=== PATIENT | male | born 1980 | race Caucasian/White ===

== ENCOUNTER 2016-12-15 08:35 | Emergency (ER) | payer OTHER ==
[2016-12-15 08:50] VITALS: BP 155/85
--- NOTE | 2016-12-15 09:34 | UC ---
UC General HPI - HPI Summary HPI Summary: 36yo c/o sore throat, cough, congestion last couple days. + sick contact household + strep. No sob / rash. No cp. No GI issiues. - History of Current Complaint Chief Complaint: UCRespiratory Stated Complaint: THROAT,COUGH,FEVER Time Seen by Provider: 12/15/16 08:55 Hx Obtained From: Patient - Allergy/Home Medications Allergies/Adverse Reactions: Allergies Allergy/AdvReac Type Severity Reaction Status Date / Time No Known Allergies Allergy Verified 12/15/16 08:40 Home Medications: Home Medications Metoprolol Succinate [Toprol Xl] 50 mg PO BID 12/15/16 [History Confirmed ] PMH/Surg Hx/FS Hx/Imm Hx Previously Healthy: Yes - Surgical History Surgical History: Yes Surgery Procedure, Year, and Place: t/a 1987. L shoulder arhroscopy. biateral knee surgery acl 2014 - Family History Known Family History: Positive: Cardiac Disease - father - Social History Alcohol Use: Occasionally Alcohol Amount: COUPLE BEERS 3XWEEK Substance Use Type: Excessive Caffeine, Marijuana Substance Use Comment - Amount & Last Used: MEDICALLY PRESCRIBED Smoking Status (MU): Never Smoked Tobacco - Immunization History Most Recent Influenza Vaccination: NONE 2017 Review of Systems Constitutional: Fever Skin: Negative Eyes: Negative ENT: Sore Throat, Sinus Congestion Respiratory: Cough Cardiovascular: Negative Gastrointestinal: Negative Genitourinary: Negative Motor: Negative Neurovascular: Negative Musculoskeletal: Negative Neurological: Negative Psychological: Negative Is Patient Immunocompromised?: No All Other Systems Reviewed And Are Negative: Yes Physical Exam Triage Information Reviewed: Yes Appearance: Well-Nourished Vital Signs: Initial Vital Signs Temp 99.7 F 12/15/16 08:41 Pulse 115 12/15/16 08:41 Resp 18 12/15/16 08:41 BP 155/85 12/15/16 08:41 Pulse Ox 99 12/15/16 08:41 Vital Signs Reviewed: Yes Eye Exam: Normal ENT: Positive: Pharyngeal erythema, TM dull Dental Exam: Normal Neck exam: Normal Respiratory Exam: Normal - + rhonchorus cough Respiratory: Positive: Chest non-tender, Lungs clear, Normal breath sounds, No respiratory distress, No accessory muscle use Cardiovascular Exam: Normal Cardiovascular: Positive: RRR, No Murmur, Pulses Normal, Brisk Capillary Refill Abdominal Exam: Normal Musculoskeletal Exam: Normal Neurological Exam: Normal Psychological Exam: Normal Skin Exam: Normal - no visible or reported rash Course/Dx - Course Course Of Treatment: + rst. no new issues in CCC. Questions answered as posed to the best of my ability. Reviewed strep household precuations. - Differential Dx - Multi-Symptom Provider Diagnoses: strep throat Discharge - Discharge Plan Condition: Stable Disposition: HOME Patient Education Materials: Strep Throat (ED)
== END 2016-12-15 09:38 | disposition home or self-care (01) ==
LOC: UCCORT 08:35
DX: J02.0 Streptococcal pharyngitis (principal); F12.10 Cannabis abuse, uncomplicated
CPT/HCPCS: 87651; 99212; G0463

== ENCOUNTER 2018-08-11 08:58 | Emergency (ER) | payer OTHER ==
[2018-08-11] MEDS ORDERED: Albuterol HFA INHALER* 8 gm MDI INH ONE (09:32)
--- NOTE | 2018-08-11 09:33 | UC ---
Respiratory Complaint HPI - HPI Summary HPI Summary: 38 yo male with nasal congestion and post nasal drip x > 2 weeks facial pressure ears popping feverish cough (occasionally productive of suptum) chest tightness has used inhalers in past no n/v/s no CP or SOB - History of Current Complaint Chief Complaint: UCRespiratory Stated Complaint: SINUS PRESSURE Time Seen by Provider: 08/11/18 09:18 Hx Obtained From: Patient Onset/Duration: Sudden Onset, Lasting Weeks Timing: Constant Severity Initially: Mild Severity Currently: Moderate Pain Intensity: 3 Pain Scale Used: 0-10 Numeric Character: Cough: Nonproductive - rarely brings up phelgm Aggravating Factors: Allergens Alleviating Factors: Nothing Associated Signs And Symptoms: Positive: Wheezing, Nasal Congestion, Sinus Discomfort Related History: Seasonal Allergies, Similar Episode/Dx as: - sinsuitis - Allergies/Home Medications Allergies/Adverse Reactions: Allergies Allergy/AdvReac Type Severity Reaction Status Date / Time No Known Allergies Allergy Verified 08/11/18 09:07 Home Medications: Home Medications Fluticasone NASAL SPRAY 50MCG* [Flonase NASAL SPRAY 50MCG*] 2 spray BOTH NARES DAILY PRN 08/11/18 [History Confirmed 08/11/18] Lisinopril TAB* [Prinivil TAB*] 20 mg PO DAILY 08/11/18 [History Confirmed 08/11] PMH/Surg Hx/FS Hx/Imm Hx Previously Healthy: Yes Cardiovascular History: Hypertension - Surgical History Surgical History: Yes Surgery Procedure, Year, and Place: t/a 1987. L shoulder arhroscopy. biateral knee surgery acl 2014 - Family History Known Family History: Positive: Cardiac Disease - father, Hypertension - Social History Alcohol Use: Weekly Alcohol Amount: COUPLE BEERS 3XWEEK Substance Use Type: Excessive Caffeine, Marijuana Substance Use Comment - Amount & Last Used: MEDICALLY PRESCRIBED Smoking Status (MU): Never Smoked Tobacco - Immunization History Most Recent Influenza Vaccination: NONE 2016 Review of Systems All Other Systems Reviewed And Are Negative: Yes Constitutional: Positive: Fever, Fatigue Skin: Positive: Negative Eyes: Positive: Negative ENT: Positive: Ear Ache, Nasal Discharge, Sinus Congestion, Sinus Pain/ Tenderness Respiratory: Positive: Cough Cardiovascular: Positive: Negative Gastrointestinal: Positive: Negative Genitourinary: Positive: Negative Motor: Positive: Negative Neurovascular: Positive: Negative Musculoskeletal: Positive: Negative Neurological: Positive: Negative Psychological: Positive: Negative Physical Exam Triage Information Reviewed: Yes Appearance: Well-Appearing, No Pain Distress, Well-Nourished Vital Signs: Initial Vital Signs Temp 98.3 F 08/11/18 09:04 Pulse 116 08/11/18 09:04 Resp 20 08/11/18 09:04 BP 172/96 08/11/18 09:04 Pulse Ox 100 08/11/18 09:04 Vital Signs Reviewed: Yes Eyes: Positive: Conjunctiva Clear ENT: Positive: Hearing grossly normal, Pharyngeal erythema, Nasal congestion, Nasal drainage, TMs normal, Sinus tenderness, Uvula midline. Negative: Tonsillar swelling, Tonsillar exudate, Trismus, Muffled voice, Hoarse voice, Dental tenderness Dental Exam: Normal Neck: Positive: Supple, Nontender, No Lymphadenopathy Respiratory: Positive: No respiratory distress, No accessory muscle use, Wheezing Cardiovascular: Positive: RRR, No Murmur Musculoskeletal: Positive: ROM Intact, No Edema Neurological: Positive: Alert Psychological Exam: Normal Skin Exam: Normal Respiratory Course/Dx - Differential Dx/Diagnosis Provider Diagnosis: Acute sinusitis, Acute bronchitis with bronchospasm Discharge - Sign-Out/Discharge Documenting (check all that apply): Patient Departure All imaging exams completed and their final reports reviewed: No Studies - Discharge Plan Condition: Stable Disposition: HOME Prescriptions: Amoxicillin PO (*) [Amoxicillin 875 MG (*)] 875 mg PO BID #14 tab predniSONE [Deltasone 20 MG TAB] 40 mg PO DAILY #14 tab Patient Education Materials: Sinusitis (ED), Bronchospasm (ED), How to Use a Metered-Dose Inhaler and a Spacer (ED) Referrals: Shereen Tracy MD [Primary Care Provider] - 5 Days (if not better) - Billing Disposition and Condition Condition: STABLE Disposition: Home
[2018-08-11 09:48] VITALS: BP 171/98
== END 2018-08-11 09:49 | disposition home or self-care (01) ==
LOC: UCCORT 08:58
DX: J01.90 Acute sinusitis, unspecified (principal); J20.9 Acute bronchitis, unspecified; I10 Essential (primary) hypertension; Z79.899 Other long term (current) drug therapy
CPT/HCPCS: 99213; A9270-GY; G0463